=== PATIENT | female | born 1975 | race Caucasian/White ===

== ENCOUNTER 2018-07-16 08:07 | Outpatient (CLI) | payer BC ==
--- NOTE | 2018-07-16 09:32 | ULT ---
ABDOMINAL ULTRASOUND COMPLETE: History A 43-year-old female with a history of elevated LFTs. There is hepatomegaly with coarse increased echogenicity, evidence for some prominent fatty change wi th some fatty sparing adjacent to the gallbladder. The gallbladder demonstrates no evidence of galls tones, wall thickening, edema, or pericholecystic fluid. The common bile duct is 0.4 cm. The visual ized pancreas, IVC, aorta, and spleen are unremarkable. No renal hydronephrosis. No abscess or abno rmal fluid collection. IMPRESSION: Hepatomegaly with fatty change with some minimal fatty sparing adjacent to the gallbladder. No evide nce of gallstones. POS: OFF
== END 2018-07-16 08:08 | disposition home or self-care (01) ==
LOC: SCSULT 08:07
PROVIDERS: ATTEND Family Medicine
DX: R74.8 Abnormal levels of other serum enzymes (principal); K76.0 Fatty (change of) liver, not elsewhere classified
CPT/HCPCS: 76700